=== PATIENT | female | born 1975 | race Two or more races ===

== ENCOUNTER 2017-11-21 17:19 | Emergency (ER) | payer OTHER ==
[~2017-11-21] VITALS: Ht 162.6 cm; Wt 72.7 kg
[~2017-11-21 17:19] MED LIST: NONE PER PT
[2017-11-21 18:45] LABS: BASOPHILS # (AUTO) 0.05 x10^3/uL (0-0.1); BASOPHILS % (AUTO) 1 % (0-1); EOSINOPHILS # (AUTO) 0.05 x10^3/uL (0-0.4); EOSINOPHILS % (AUTO) 1 % (1-7); LYMPHOCYTES # (AUTO) 2.72 x10^3/uL (1-3.4); LYMPHOCYTES % (AUTO) 35 % (22-44); MD NO; MEAN CORPUSCULAR HEMOGLOBIN 31.1 pg (27.0-34.8); MEAN CORPUSCULAR HGB CONC 34.2 g/dL (32.4-35.8); MEAN PLATELET VOLUME 9.2 fL (7.4-10.4); MONOCYTES # (AUTO) 0.58 x10^3/uL (0.2-0.8); MONOCYTES % (AUTO) 8 % (2-9); NEUTROPHILS # (AUTO) 4.31 x10^3/uL (1.8-6.8); NEUTROPHILS % (AUTO) 56 % (42-75); PLATELET COUNT 265 x10^3/uL (130-400); RED BLOOD COUNT 4.55 x10^6/uL (3.82-5.3); RED CELL DISTRIBUTION WIDTH 13.8 % (9.6-15.2)
[2017-11-21 18:49] LABS: ALANINE AMINOTRANSFERASE 38 U/L (12-78); ALBUMIN 4.2 g/dL (3.4-5.0); ANION GAP 6 mmol/L (5-15); CHLORIDE 106 mmol/L (98-107)
[2017-11-21 18:54] LABS: ALKALINE PHOSPHATASE 68 U/L (45-117); BILIRUBIN,TOTAL 0.3 mg/dL (0.2-1.0); TOTAL PROTEIN 7.7 g/dL (6.4-8.2)
[2017-11-21 19:30] LABS: MICROSCOPIC NOT IND
[2017-11-21 19:34] LABS: CULTURE INDICATED? NO
[2017-11-21] MEDS ORDERED: ONDANSETRON 2MG/ML, 2ML ONE (19:47)
[2017-11-21] MEDS ORDERED: MORPHINE SULFATE 4 MG/ML, 1ML ONE (19:48)
[2017-11-21] MEDS ORDERED: ONDANSETRON 2MG/ML, 2ML IVPush ONE (20:00)
[2017-11-21] MEDS ORDERED: SODIUM CHLORIDE 0.9% 1,000ML IVBOLUS ONE (20:00)
[2017-11-21] MEDS ORDERED: MORPHINE SULFATE 4 MG/ML, 1ML IVPush PRN (20:00)
[2017-11-21 20:32] VITALS: BP 148/70
== END 2017-11-21 20:53 | disposition home or self-care (01) ==
LOC: ED 20:00
DX: D25.2 Subserosal leiomyoma of uterus (principal)
CPT/HCPCS: 36415; 76830; 80053; 81003; 84703; 85025; 96374; 96375; 99285; J2405; J7030

== ENCOUNTER 2017-11-28 08:27 | Day surgery (SDC) | payer BC, OTHER ==
[~2017-11-28] VITALS: Ht 162.6 cm; Wt 72.6 kg
[2017-11-28] MEDS ORDERED: BUPIVACAINE/PF-EPI 0.25% 1:200K ONE (08:39)
[2017-11-28] MEDS ORDERED: LACTATED RINGERS 1,000 ML IV SCH (09:49)
[2017-11-28 10:14] VITALS: BP 131/83
[2017-11-28 10:19] LABS: HCG UR SG 1.012 (1.003-1.030)
[2017-11-28] MEDS ORDERED: MIDAZOLAM 1 MG/ML, 2ML ONE (10:28)
[2017-11-28] MEDS ORDERED: FENTANYL PF 250 MCG/5ML ONE (10:28)
[2017-11-28] MEDS ORDERED: ACETAMINOPHEN 500 MG TABLET PO ONE (10:30)
[2017-11-28] MEDS ORDERED: OxyconTIN ER 10 MG TAB.ER PO ONE (10:30)
[2017-11-28] MEDS ORDERED: FAMOTIDINE 20 MG TABLET PO ONE (10:30)
[2017-11-28] MEDS ORDERED: ONDANSETRON ODT 8 MG PO PRN (11:00)
[2017-11-28] MEDS ORDERED: FENTANYL PF 100 MCG/2ML IV PRN (11:00)
[2017-11-28] MEDS ORDERED: ONDANSETRON 2MG/ML, 2ML IV PRN (11:00)
[2017-11-28] MEDS ORDERED: MEPERIDINE/PF 25MG/0.5ML IVPush PRN (11:00)
[2017-11-28] MEDS ORDERED: PROMETHAZINE 25 MG/ML, 1ML IV PRN (11:00)
[2017-11-28] MEDS ORDERED: ONDANSETRON 2MG/ML, 2ML ONE (11:08)
[2017-11-28] MEDS ORDERED: CEFAZOLIN 1,000 MG ONE (11:08)
[2017-11-28] MEDS ORDERED: GLYCOPYRROLATE 0.2MG/1ML, 5ML ONE (11:08)
[2017-11-28] MEDS ORDERED: SUCCINYLCHOLINE 20 MG/ML, 10ML ONE (11:08)
[2017-11-28] MEDS ORDERED: DEXAMETHASONE 4 MG/ML, 1ML ONE (11:08)
[2017-11-28] MEDS ORDERED: ROCURONIUM 10MG/ML,5ML ONE (11:08)
[2017-11-28] MEDS ORDERED: PROPOFOL 10 MG/ML, 20ML ONE (11:08)
[2017-11-28] MEDS ORDERED: NEOSTIGMINE 1 MG/ML, 10ML ONE (11:08)
[2017-11-28] MEDS ORDERED: FLUORESCEIN SODIUM 500 MG/5 ML ONE (11:12)
[2017-11-28] MEDS ORDERED: MORPHINE SULFATE 4 MG/ML, 1ML ONE ×2 (12:29→12:55)
[2017-11-28] MEDS ORDERED: OXYcodone 5 MG/5 ML ORAL.SOL UDC ONE ×2 (12:30→17:27)
[2017-11-28] MEDS: MORPHINE SULFATE 4 MG/ML, 1ML IVPush PRN ×3 (12:33→12:56)
[2017-11-28] MEDS: OXYcodone 5 MG/5 ML ORAL.SOL UDC PO PRN ×3 (12:33→17:32)
[2017-11-28] MEDS ORDERED: LORazepam 2 MG/ML, 1ML ONE (13:04)
[2017-11-28] MEDS ORDERED: LORazepam 2 MG/ML, 1ML IVPush ONE (13:30)
[2017-11-28 15:58] LABS: BASOPHILS % (AUTO) 0 % (0-1); EOSINOPHILS % (AUTO) 0 % (1-7); LYMPHOCYTES # (AUTO) 0.91 x10^3/uL (1-3.4); LYMPHOCYTES % (AUTO) 8 % (22-44); MD NO; MEAN CORPUSCULAR HEMOGLOBIN 30.5 pg (27.0-34.8); MEAN CORPUSCULAR HGB CONC 33.2 g/dL (32.4-35.8); MEAN CORPUSCULAR VOLUME 91.8 fL (80-100); MEAN PLATELET VOLUME 9.1 fL (7.4-10.4); MONOCYTES # (AUTO) 0.06 x10^3/uL (0.2-0.8); MONOCYTES % (AUTO) 1 % (2-9); NEUTROPHILS # (AUTO) 10.75 x10^3/uL (1.8-6.8); NEUTROPHILS % (AUTO) 92 % (42-75); PLATELET COUNT 233 x10^3/uL (130-400); RED BLOOD COUNT 4.56 x10^6/uL (3.82-5.3); RED CELL DISTRIBUTION WIDTH 14.1 % (9.6-15.2)
== END 2017-11-28 19:00 ==
LOC: OUT 08:27
PROVIDERS: ATTEND Obstetrics & Gynecology
DX: D25.0 Submucous leiomyoma of uterus (principal); N94.6 Dysmenorrhea, unspecified
CPT/HCPCS: 36415; 58262; 81025; 85025; 86850; 86900; 88307; J0330; J0690; J1100; J2060; J2250; J2405; J2704; J2710; J3010; J3490; J7120

== ENCOUNTER 2020-12-19 13:21 | Emergency (ER) | payer OTHER ==
[~2020-12-19] VITALS: Ht 157.5 cm; Wt 72.0 kg
[2020-12-19] MEDS ORDERED: LORazepam 2 MG/ML, 1ML IVPush ONE (13:30)
--- NOTE | 2020-12-19 13:49 | NUR ---
PT CURRENTLY BREATHING AT 13 RESP PER MINUTE. PT ABLE TO STATE WHAT HAPPENED AND ANSWER OTHER QUESTIONS. PT SON HERE AT PT BEDSIDE. IV STARTED, PT RESTING CALMLY IN BED AT THIS TIME.
[2020-12-19] MEDS ORDERED: IBUP-1223 PO (13:53)
[2020-12-19] MEDS ORDERED: OMEG-14 PO (13:53)
[2020-12-19] MEDS ORDERED: LORazepam 1MG TABLET ONE (13:59)
[2020-12-19] MEDS ORDERED: PLEASE ENTER HEIGHT AND WEIGHT MC SCH (14:00)
[2020-12-19 14:02] LABS: ALBUMIN 3.7 g/dL (3.4-5.0); ANION GAP 10 mmol/L (5-15); BASOPHILS % (AUTO) 1 % (0-1); CALCIUM 8.8 mg/dL (8.5-10.1); CHLORIDE 108 mmol/L (98-107); EOSINOPHILS % (AUTO) 0 % (1-7); LYMPHOCYTES % (AUTO) 23 % (22-44); MEAN CORPUSCULAR HEMOGLOBIN 31.5 pg (27.0-34.8); MEAN CORPUSCULAR HGB CONC 34.1 g/dL (32.4-35.8); MEAN PLATELET VOLUME 10.3 fL (7.4-10.4); MONOCYTES % (AUTO) 5 % (2-9); NEUTROPHILS % (AUTO) 70 % (42-75); PLATELET COUNT 269 x10^3/uL (130-400); RED BLOOD COUNT 4.75 x10^6/uL (3.82-5.3); RED CELL DISTRIBUTION WIDTH 14.7 % (9.6-15.2)
[2020-12-19 14:03] LABS: CREATININE 0.56 mg/dL (0.55-1.02)
--- NOTE | 2020-12-19 14:03 | NUR ---
PT REMAINS CALM AT THIS TIME. PT MEDICATED PER EMAR. ERP DR. LAW HOLLINS WITH GIVING ORDERED MED PO. PT SON REMAINS AT BEDSIDE. WILL CONTINUE TO MONITOR. PT VITALS CONTINUING TO IMPROVE.
--- NOTE | 2020-12-19 14:21 | NUR ---
ALL RESULTS BACK. PT UP FOR RECHECK.
[2020-12-19 15:51] VITALS: BP 124/73
== END 2020-12-19 15:52 | disposition home or self-care (01) ==
LOC: ED 15:46
DX: F41.1 Generalized anxiety disorder (principal); R06.4 Hyperventilation; R94.31 Abnormal electrocardiogram [ECG] [EKG]; Z90.710 Acquired absence of both cervix and uterus
CPT/HCPCS: 36415; 71045; 80048; 82040; 82962; 85025; 93005; 96374; 99285; J2060